=== PATIENT | male | born 1960 ===

== ENCOUNTER 2018-07-02 19:54 | Emergency (ER) | payer OTHER ==
[~2018-07-02] VITALS: Ht 172.7 cm; Wt 104.3 kg
[~2018-07-02 19:54] MED LIST: CRESTOR20 MG; INTESTINEX680 MG PO; METOPROLOL SUCC50 MG; OSEL75CA PO; TUSICOF LIQUID120 ML PO; VALSARTAN320 MG; ZANTAC150 MG PO
== END 2018-07-03 10:17 | disposition home or self-care (01) ==
LOC: ER 19:54 → CPU-OBS 20:07 → ER 20:07
DX: R07.89 Other chest pain (principal); J06.9 Acute upper respiratory infection, unspecified; J09.X2 Influenza due to identified novel influenza A virus with other respiratory manifestations; I16.0 Hypertensive urgency; J40 Bronchitis, not specified as acute or chronic; I10 Essential (primary) hypertension; K29.00 Acute gastritis without bleeding; G45.8 Other transient cerebral ischemic attacks and related syndromes
CPT/HCPCS: G0378; G0379; 93005; 70450